=== PATIENT | female | born 1995 | race Two or more races ===

== ENCOUNTER 2017-03-18 20:46 | Emergency (ER) | payer OTHER ==
[~2017-03-18] VITALS: Ht 152.4 cm; Wt 81.6 kg
[2017-03-18] MEDS ORDERED: Tubing IV Cassette IV ONE (21:30)
[2017-03-18] MEDS ORDERED: Morphine Sulfate 4mg/ml Inj IVP ONE ×2 (21:30→23:00)
[2017-03-18 21:45] LABS: BASOPHILS % (AUTO) 0.8 % (0.0-2.0); EOSINOPHILS % (AUTO) 0.3 % (0.0-3.0); HEMATOCRIT 45.9 % (37.0-47.0); HEMOGLOBIN 14.7 G/DL (12.0-16.0); LYMPHOCYTES % (AUTO) 14.5 % (20.0-45.0); MEAN CORPUSCULAR VOLUME 93 FL (80-99); MONOCYTES % (AUTO) 6.4 % (1.0-10.0); PLATELET COUNT 300 K/UL (150-450); RED BLOOD COUNT 4.95 M/UL (4.20-5.40); RED CELL DISTRIBUTION WIDTH 11.8 % (11.6-14.8)
[2017-03-18 21:54] LABS: APPEARANCE,URINE SLIGHTLY CLOUDY; BILIRUBIN, URINE NEGATIVE (NEGATIVE); GLUCOSE, URINE (UA) NEGATIVE (NEGATIVE); KETONES,URINE 3+ (NEGATIVE); LEUKOCYTE ESTERASE ,URINE 2+ (NEGATIVE); NITRITE,URINE NEGATIVE (NEGATIVE); PH,URINE 5 (4.5-8.0); PROTEIN,URINE 1+ (NEGATIVE); UROBILINOGEN,URINE NORMAL MG/DL (0.0-1.0)
[2017-03-18 21:55] LABS: COLOR,URINE YELLOW
[2017-03-18 21:57] LABS: ANION GAP 14 mmol/L (5-15); BLOOD UREA NITROGEN 8 mg/dL (7-18); CALCIUM 8.1 MG/DL (8.5-10.1); CARBON DIOXIDE 21 MMOL/L (21-32); CHLORIDE 105 MMOL/L (98-107); CREATININE 0.7 MG/DL (0.55-1.30); POTASSIUM 3.8 MMOL/L (3.5-5.1); SODIUM 140 MMOL/L (136-145)
[2017-03-18 22:02] LABS: ALANINE AMINOTRANSFERASE 18 U/L (12-78); ALBUMIN 4.1 G/DL (3.4-5.0); ALBUMIN/GLOBULIN RATIO 0.9 (1.0-2.7); ALKALINE PHOSPHATASE 69 U/L (46-116); ASPARTATE AMINO TRANSFERASE 15 U/L (15-37); BILIRUBIN,TOTAL 0.5 MG/DL (0.2-1.0)
[2017-03-18] MEDS ORDERED: cefTRIAXone 1 GM in NS 55 ML IVPB ONE (22:15)
--- NOTE | 2017-03-18 22:33 | Emergency Room Report ---
History of Present Illness General Chief Complaint: Vomiting Source: Patient Present Illness HPI 21-year-old female presents to ED complaining of abdominal pain with nausea and vomiting started 3 days ago. Pain is epigastric, sharp, 8/10, nonradiating. Also states she has streaks of blood in her vomit. States she has history of "colitis" but does not specify further. States she stated medications but does not know the name of them. Denies chest pain or shortness of breath. Denies dysuria or hematuria. Denies diarrhea. No other aggravating relieving factors. Denies any other associated symptoms Allergies: Coded Allergies: No Known Allergies (Unverified , 03/18/17) Patient History Past Medical History: none Past Surgical History: none Pertinent Family History: none Social History: Denies: smoking, alcohol use, drug use Last Menstrual Period: Irregular Now: No Immunizations: UTD Reviewed Nursing Documentation: PMH: Agreed, PSxH: Agreed Nursing Documentation-PMH Past Medical History: No History, Except For Hx Cardiac Problems: No - Colitis Review of Systems All Other Systems: negative except mentioned in HPI Physical Exam Vital Signs Date Time Temp Pulse Resp B/P (MAP) Pulse Ox O2 Delivery O2 Flow Rate FiO2 03/18/17 20:57 99.3 96 15 119/75 97 Room Air Sp02 EP Interpretation: reviewed, normal General Appearance: alert, GCS 15, non-toxic Head: normocephalic, atraumatic Eyes: bilateral eye normal inspection, bilateral eye PERRL ENT: hearing grossly normal, normal pharynx, no angioedema, normal voice Neck: full range of motion, supple/symm/no masses Respiratory: chest non-tender, lungs clear, normal breath sounds, speaking full sentences Cardiovascular #1: regular rate, rhythm, no edema Cardiovascular #2: 2+ carotid (R), 2+ carotid (L), 2+ radial (R), 2+ radial (L) , 2+ dorsalis pedis (R), 2+ dorsalis pedis (L) Gastrointestinal: normal bowel sounds, non tender, soft, non-distended, no guarding, no rebound Rectal: deferred Genitourinary: normal inspection, no CVA tenderness Musculoskeletal: back normal, gait/station normal, normal range of motion, non- tender Neurologic: alert, oriented x3, responsive, motor strength/tone normal, sensory intact, speech normal Psychiatric: judgement/insight normal, memory normal, mood/affect normal, no suicidal/homicidal ideation Reflexes: 3+ bicep (R), 3+ bicep (L), 3+ tricep (R), 3+ tricep (L), 3+ knee (R) , 3+ knee (L) Skin: normal color, no rash, warm/dry, well hydrated Lymphatic: no adenopathy Medical Decision Making Diagnostic Impression: Primary Impression: Gastritis Qualified Codes: K29.01 - Acute gastritis with bleeding Additional Impression: UTI (urinary tract infection) Qualified Codes: N39.0 - Urinary tract infection, site not specified ER Course Hospital Course 21-year-old F presents to ED with abdominal pain, vomiting Differential diagnosis includes-appendicitis, cholecystitis, small bowel obstruction, gastritis, Clinical course Patient placed on stretcher. After initial history and physical I ordered labs , IV fluids, pain medications, zofran, pepcid Labs - noted leukocytosis, electrolytes ok, LFTs normal, UA + bacteria patient continues to have pain, vomiting. CT ordered rocephin IV given CT scan shows no acute pathology. ? ovarian cyst Pelvic US - shows R ovarian cyst, no torsion Upon reassessment, patient feels better. tolerating PO. safe for discharge. discussed findings with patient I feel this is a highly complex case requiring extensive working including EKG/ Rhythm strip, Xray/CT/US, Blood/urine lab work, repeat exams while in ED, and administration of strong opiates/narcotics for pain control, admission to hospital or close patient follow up. Diagnosis - gastritis, UTI Stable and discharged to home with Rx [place], Keflex, Zofran, Zantac. Followup with PMD. Return to ED if symptoms recur or worsen Labs Test 03/18/17 21:25 White Blood Count 16.0 K/UL (4.8-10.8) Red Blood Count 4.95 M/UL (4.20-5.40) Hemoglobin 14.7 G/DL (12.0-16.0) Hematocrit 45.9 % (37.0-47.0) Mean Corpuscular Volume 93 FL (80-99) Mean Corpuscular Hemoglobin 29.6 PG (27.0-31.0) Mean Corpuscular Hemoglobin Concent 32.0 G/DL (32.0-36.0) Red Cell Distribution Width 11.8 % (11.6-14.8) Platelet Count 300 K/UL (150-450) Mean Platelet Volume 7.1 FL (6.5-10.1) Neutrophils (%) (Auto) 78.0 % (45.0-75.0) Lymphocytes (%) (Auto) 14.5 % (20.0-45.0) Monocytes (%) (Auto) 6.4 % (1.0-10.0) Eosinophils (%) (Auto) 0.3 % (0.0-3.0) Basophils (%) (Auto) 0.8 % (0.0-2.0) Urine Color Yellow Urine Appearance Slightly cloudy Urine pH 5 (4.5-8.0) Urine Specific [place] 1.025 (1.005-1.035) Urine Protein 1+ (NEGATIVE) Urine Glucose (UA) Negative (NEGATIVE) Urine Ketones 3+ (NEGATIVE) Urine Occult Blood Negative (NEGATIVE) Urine Nitrite Negative (NEGATIVE) Urine Bilirubin Negative (NEGATIVE) Urine Urobilinogen Normal MG/DL (0.0-1.0) Urine Leukocyte Esterase 2+ (NEGATIVE) Urine RBC 2-4 /HPF (0 - 2) Urine WBC 10-15 /HPF (0 - 2) Urine Squamous Epithelial Cells Many /LPF (NONE/OCC) Urine Bacteria Moderate /HPF (NONE) Urine Mucus Many /LPF (NONE/OCC) Urine HCG, Qualitative Negative Sodium Level 140 MMOL/L (136-145) Potassium Level 3.8 MMOL/L (3.5-5.1) Chloride Level 105 MMOL/L (98-107) Carbon Dioxide Level 21 MMOL/L (21-32) Anion Gap 14 mmol/L (5-15) Blood Urea Nitrogen 8 mg/dL (7-18) Creatinine 0.7 MG/DL (0.55-1.30) Estimat Glomerular Filtration Rate > 60 mL/min (>60) Glucose Level 98 MG/DL (74-106) Calcium Level 8.1 MG/DL (8.5-10.1) Total Bilirubin 0.5 MG/DL (0.2-1.0) Aspartate Amino Transf (AST/SGOT) 15 U/L (15-37) Alanine Aminotransferase (ALT/SGPT) 18 U/L (12-78) Alkaline Phosphatase 69 U/L (46-116) Total Protein 8.6 G/DL (6.4-8.2) Albumin 4.1 G/DL (3.4-5.0) Globulin 4.5 g/dL Albumin/Globulin Ratio 0.9 (1.0-2.7) Lipase 103 U/L (73-393) CT/MRI/US Diagnostic Results CT/MRI/US Diagnostic Results #1: Imaging Test Ordered: CT A/P Impression no acute process. R ovarian cyst CT/MRI/US Diagnostic Results #2: Imaging Test Ordered: Pelvic US Impression R ovarian cyst, no torsion Last Vital Signs Date Time Temp Pulse Resp B/P (MAP) Pulse Ox O2 Delivery O2 Flow Rate FiO2 03/18/17 22:03 99.3 03/18/17 20:57 96 15 119/75 97 Room Air Status: improved Disposition: HOME, SELF-CARE Condition: Stable Scripts Ranitidine Hcl* (ZANTAC*) 150 Mg Tablet 150 MG ORAL TWICE A DAY, #30 TAB Prov: JILL HSARPE M.D. 03/19/17 Ondansetron Odt* (ZOFRAN ODT*) 4 Mg Tab.rapdis 4 MG ORAL Q6H Y for Nausea & Vomiting, #30 TAB 0 Refills Prov: JILL SHARPE M.D. 03/19/17 Hydrocodone Bit/Acetaminophen 5-325* (NORCO 5-325*) 1 Each Tablet 1 TAB ORAL Q6H Y for For Pain, #10 TAB 0 Refills Prov: JILL SHARPE M.D. 03/19/17 Cephalexin* (KEFLEX*) 500 Mg Capsule 500 MG ORAL Q6H, #28 CAP 0 Refills Prov: JILL SHARPE M.D. 03/19/17 Referrals: NOT CHOSEN RUBEN/,REFERRING (PCP) JILL SHARPE M.D. Mar 18, 2017 22:33
[2017-03-18 23:14] VITALS: BP 124/73
[2017-03-19] MEDS ORDERED: Ketorolac 30mg Inj IV ONE (00:15)
[2017-03-19] MEDS ORDERED: ZOFRAN ODT4 MG ORAL (01:20)
[2017-03-19] MEDS ORDERED: NORCO 5-325 TA1 EACH ORAL (01:20)
[2017-03-19] MEDS ORDERED: RANITIDINE HCL150 MG ORAL (01:20)
[2017-03-19] MEDS ORDERED: KEFLEX500 MG ORAL (01:20)
[2017-03-19 01:25] VITALS: BP 123/83
[2017-03-19 01:45] VITALS: BP 123/83
--- NOTE | 2017-03-21 14:06 | Diagnostic Imaging Report ---
Indication: Abdominal pain Technique: CT of the abdomen and pelvis utilizing automated exposure control with intravenous contrast. Venous scanning performed. CT dose: Total DLP 1134 mGycm; CTDI vol 18.8 and 19.5 mGy Comparison: None Findings: The lung bases are clear. There is a small hiatal hernia. No CT evidence gallstones are identified. There is mild fatty infiltration of the liver. Adrenal glands are unremarkable. 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 The small bowel loops are normal in caliber. The appendix is normal. There is no free intraperitoneal air. There is trace free fluid in the pelvis. Bladder is grossly unremarkable. There is an approximately 3.4 cm low-attenuation lesion involving the right ovary with a small area of enhancement along its anterior aspect measuring 6 mm in thickness. Impression: Normal appendix. No mechanical bowel obstruction. Small hiatal hernia. Approximately 3.4 cm low-attenuation lesion involving the right ovary with small area of enhancement along its anterior aspect measuring 6 mm in thickness. Findings could represent a complex ovarian cyst with adjacent ovarian tissue but the possibility of a cystic ovarian mass cannot be completely excluded. Correlation with pelvic ultrasound recommended. Short-term follow-up recommended for further evaluation. The CT scanner at [facility] is accredited by the [employer] and the scans are performed using protocols designed to limit radiation exposure to as low as reasonably achievable to attain images of sufficient resolution adequate for diagnostic evaluation.
--- NOTE | 2017-03-21 14:06 | Diagnostic Imaging Report ---
Indication: Pelvic pain Technique: Transabdominal and endovaginal pelvic ultrasound. Comparison: CT abdomen and pelvis 03/18/2017 Findings: The uterus measures 6.5 x 2.6 cm. The endometrial echo complex measures 1.0 cm. There is a cervical nabothian cyst. Left ovary measures 2.3 x 1.2 cm and is grossly unremarkable with color and Doppler flow. Right ovary measures 4.6 x 3.3 cm with a 3.2 cm complex cystic structure with internal echoes. Impression: Approximately 3.2 cm complex cystic lesion with internal echoes. Findings could represent a hemorrhagic cyst but other cystic abnormalities not completely excluded. Short-term follow-up ultrasound recommended for further evaluation. Cervical nabothian cysts.
== END 2017-03-19 01:45 | disposition home or self-care (01) ==
LOC: EMR 21:18
DX: K29.01 Acute gastritis with bleeding (principal); N39.0 Urinary tract infection, site not specified; D72.829 Elevated white blood cell count, unspecified; N83.201 Unspecified ovarian cyst, right side
CPT/HCPCS: 36415; 74177; 76830; 76856; 80053; 81003; 81025; 83690; 85025; 87086; 96361; 96372; 96374; 96375; 99284; J0696; J1885; J2270; J2405; Q9967; S0028

== ENCOUNTER 2018-01-11 01:44 | Emergency (ER) | payer OTHER ==
[~2018-01-11] VITALS: Ht 152.4 cm; Wt 68.0 kg
[~2018-01-11 01:44] MED LIST: KEFLEX500 MG ORAL; NORCO 5-325 TA1 EACH ORAL; RANITIDINE HCL150 MG ORAL; ZOFRAN ODT4 MG ORAL
[2018-01-11] MEDS ORDERED: NKM (01:45)
[2018-01-11 01:57] VITALS: BP 115/71
[2018-01-11] MEDS ORDERED: Pantoprazole Inj IV ONE (02:00)
[2018-01-11] MEDS ORDERED: Mylanta II UD 30ml ORAL ONE (02:00)
[2018-01-11] MEDS ORDERED: Lidocaine 2% Visc 15ml soln ORAL ONE (02:00)
--- NOTE | 2018-01-11 02:01 | Emergency Room Report ---
History of Present Illness General Chief Complaint: Abdominal Pain Source: Patient Present Illness HPI Is a 22-year-old female with a history of bilateral hernia with reflux. She says she is postop surgery. She presents with chief complaint of epigastric pain with vomiting. Notice some blood in it. She was at a Halloween green party and however with tonight and was drinking. Complaining of epigastric pain. Pain is 8 out of 10. Worse with vomiting. No fever chills but no diarrhea. No hematuria or GI bleeding. She did complaining of vaginal bleeding. She said her period is irregular. Last menstrual period was 5 months ago. She said that she can't be because she is a lesbian. Allergies: Coded Allergies: No Known Allergies (Unverified , 01/11/18) Patient History Past Medical History: see triage record, old chart reviewed Past Surgical History: other Pertinent Family History: none Social History: Reports: alcohol use - Social Last Menstrual Period: 07/2017 Now: No : 0 Para: 0 Immunizations: other Reviewed Nursing Documentation: PMH: Agreed; PSxH: Agreed Nursing Documentation-PMH Past Medical History: No History, Except For Hx Diabetes: Yes - type 2 Hx Gastrointestinal Problems: Yes - ulcers Review of Systems Eye: Denies: eye pain, blurred vision ENT: Denies: ear pain, nose congestion, throat swelling Respiratory: Denies: cough, shortness of breath Cardiovascular: Denies: chest pain, palpitations Gastrointestinal: Reports: abdominal pain, nausea, vomiting, hematemesis; Denies: diarrhea Genitourinary: Reports: vag bleed/dc Musculoskeletal: Denies: back pain, joint pain Skin: Denies: rash Neurological: Denies: headache, numbness Endocrine: Denies: increased thirst, increased urine Hematologic/Lymphatic: Denies: easy bruising All Other Systems: negative except mentioned in HPI Physical Exam Vital Signs Date Time Temp Pulse Resp B/P (MAP) Pulse Ox O2 Delivery O2 Flow Rate FiO2 01/11/18 01:41 97.9 84 18 115/71 94 Room Air vitals normal Sp02 EP Interpretation: reviewed, normal General Appearance: well appearing, no apparent distress, alert Head: normocephalic, atraumatic Eyes: bilateral eye PERRL, bilateral eye EOMI ENT: hearing grossly normal, normal pharynx Neck: full range of motion, supple, no meningismus Respiratory: chest non-tender, lungs clear, normal breath sounds Cardiovascular #1: regular rate, rhythm, no murmur Gastrointestinal: normal bowel sounds, no mass, no organomegaly, no bruit, non- distended, tenderness - Epigastric Musculoskeletal: back normal, gait/station normal, normal range of motion Psychiatric: mood/affect normal Skin: warm/dry Medical Decision Making Diagnostic Impression: Primary Impression: Pancreatitis, alcoholic, acute Qualified Codes: K85.20 - Alcohol induced acute pancreatitis without necrosis or infection Additional Impression: Dysfunctional uterine bleeding ER Course She with epigastric and upper quadrant abdominal pain after drinking. She has evidence of mild pancreatitis. Pain is well-controlled. Vaginal bleeding is probably due to menstrual flow again. No evidence of . No evidence of ectopic. We'll discharge home. Last Vital Signs Date Time Temp Pulse Resp B/P (MAP) Pulse Ox O2 Delivery O2 Flow Rate FiO2 01/11/18 01:41 97.9 84 18 115/71 94 Room Air Status: improved Disposition: HOME, SELF-CARE Condition: Stable Scripts Omeprazole Magnesium (PRILOSEC OTC) 20 Mg Tablet.dr 20 MG ORAL DAILY, #30 TAB Prov: Diego Irvin MD 01/11/18 Hydrocodone/Acetaminophen 5-325* (HYDROCODONE/ACETAMINOPHEN 5-325*) 1 Each Tablet 1 TAB ORAL Q6H PRN for For Pain, #20 TAB 0 Refills Prov: Diego Irvin MD 01/11/18 Additional Instructions: Follow-up with your doctor in 2-3 days. Abstain from any alcohol. Return if symptom worsen. Diego Irvin MD Jan 11, 2018 02:01
[2018-01-11 02:25] LABS: BILIRUBIN, URINE NEGATIVE (NEGATIVE); COLOR,URINE PALE YELLOW; GLUCOSE, URINE (UA) NEGATIVE (NEGATIVE); KETONES,URINE NEGATIVE (NEGATIVE); LEUKOCYTE ESTERASE ,URINE 1+ (NEGATIVE); NITRITE,URINE NEGATIVE (NEGATIVE); PH,URINE 5 (4.5-8.0); PROTEIN,URINE 1+ (NEGATIVE); UROBILINOGEN,URINE NORMAL MG/DL (0.0-1.0)
[2018-01-11 02:29] LABS: APPEARANCE,URINE CLEAR
[2018-01-11 02:32] LABS: ANION GAP 8 mmol/L (5-15); BLOOD UREA NITROGEN 11 mg/dL (7-18); CALCIUM 7.7 MG/DL (8.5-10.1); CARBON DIOXIDE 24 MMOL/L (21-32); CHLORIDE 111 MMOL/L (98-107); CREATININE 0.6 MG/DL (0.55-1.30); POTASSIUM 3.6 MMOL/L (3.5-5.1); SODIUM 142 MMOL/L (136-145)
[2018-01-11 02:36] LABS: BASOPHILS % (AUTO) 0.9 % (0.0-2.0); EOSINOPHILS % (AUTO) 0.7 % (0.0-3.0); HEMATOCRIT 39.3 % (37.0-47.0); HEMOGLOBIN 13.8 G/DL (12.0-16.0); MEAN CORPUSCULAR VOLUME 90 FL (80-99); MONOCYTES % (AUTO) 6.3 % (1.0-10.0); PLATELET COUNT 248 K/UL (150-450); RED BLOOD COUNT 4.39 M/UL (4.20-5.40); WHITE BLOOD COUNT 8.5 K/UL (4.8-10.8)
[2018-01-11 02:38] LABS: ALANINE AMINOTRANSFERASE 17 U/L (12-78); ALBUMIN 3.3 G/DL (3.4-5.0); ALBUMIN/GLOBULIN RATIO 0.9 (1.0-2.7); ALKALINE PHOSPHATASE 62 U/L (46-116); ASPARTATE AMINO TRANSFERASE 10 U/L (15-37); BILIRUBIN,TOTAL 0.2 MG/DL (0.2-1.0)
[2018-01-11] MEDS ORDERED: Morphine Sulfate 4mg/ml Inj (IV/IM USE ONLY) IVP ONE (02:45)
[2018-01-11] MEDS ORDERED: HYDROmorphone 1mg/ml Carpuject IVP ONE (03:15)
[2018-01-11] MEDS ORDERED: HYDROCODON-ACE1 EA15 ORAL (03:18)
[2018-01-11] MEDS ORDERED: PRILOSEC OTC20 MG ORAL (03:18)
[2018-01-11 03:37] VITALS: BP 115/71
== END 2018-01-11 03:30 | disposition home or self-care (01) ==
LOC: EDBD 01:44 → MERGE 02:00 → EMR 02:00
DX: K85.20 Alcohol induced acute pancreatitis without necrosis or infection (principal); N93.8 Other specified abnormal uterine and vaginal bleeding; E11.9 Type 2 diabetes mellitus without complications
CPT/HCPCS: 36415; 80053; 81003; 81025; 83690; 85025; 96361; 96374; 96375; 99284; C9113; J1170; J2270; J2405

== ENCOUNTER 2019-09-04 15:31 | Emergency (ER) | payer MEDICAID, OTHER ==
[~2019-09-04] VITALS: Ht 154.9 cm; Wt 81.6 kg
[~2019-09-04 15:31] MED LIST changes: +HYDROCODON-ACE1 EA15 ORAL; +NKM; +PRILOSEC OTC20 MG ORAL
[2019-09-04 15:50] VITALS: BP 112/81
--- NOTE | 2019-09-04 16:16 | Emergency Room Report ---
History of Present Illness General Chief Complaint: Flu Like Symptoms Source: Patient Present Illness HPI 23-year-old female presents to the emergency department complaining of fevers and body aches x2 days. Patient reports one episode of nausea and vomiting this a.m. Patient reports she took Motrin last night which did help reduce her fever. Patient reports she woke up in a cold sweat. Patient denies recent travel other than staying at a resort that was very hot this past weekend and states that she was going in and out of hot weather and the cold AC. She denies sore throat, neck pain/stiffness, photophobia, headache, abdominal pain or tenderness. Patient denies constipation, diarrhea, urinary frequency or urgency. Patient denies hematuria or dysuria. Patient states she does not think that she could be . Denies contact with persons who have tested positive for or are under investigation/quarantine for COVID-19. Denies cough, SOB, wheezing or CP. Pt. denies hx of immune compromise or significant past medical hx. Allergies: Coded Allergies: No Known Allergies (Unverified , 03/18/17) COVID-19 Screening Contact w/high risk pt: No Recent Travel to affected area: No Experienced COVID-19 symptoms?: Yes COVID-19 symptoms experienced: Flu-Like Symptoms COVID-19 Testing performed RADAR REPAIRER: No Patient History Past Medical History: see triage record Past Surgical History: none Pertinent Family History: none Last Menstrual Period: 3 weeks ago Now: No Reviewed Nursing Documentation: PMH: Agreed; PSxH: Agreed Nursing Documentation-PMH Past Medical History: No History, Except For Hx Cardiac Problems: No - Colitis Review of Systems All Other Systems: negative except mentioned in HPI Physical Exam Vital Signs Date Time Temp Pulse Resp B/P (MAP) Pulse Ox O2 Delivery O2 Flow Rate FiO2 09/04/19 15:39 98.4 107 18 107/87 (94) 97 Room Air 09/04/19 15:50 99 Sp02 EP Interpretation: reviewed, normal General Appearance: no apparent distress, alert, GCS 15, non-toxic Head: normocephalic, atraumatic Eyes: bilateral eye normal inspection, bilateral eye PERRL ENT: hearing grossly normal, normal voice, TMs + canals normal, uvula midline Neck: full range of motion, no meningismus Respiratory: chest non-tender, lungs clear, normal breath sounds, no rhonchi, no respiratory distress, no accessory muscle use, no wheezing, speaking full sentences Cardiovascular #1: regular rate, rhythm Gastrointestinal: normal bowel sounds, non tender, soft Rectal: deferred Genitourinary: normal inspection, no CVA tenderness Musculoskeletal: normal range of motion, gait/station normal, non-tender Neurologic: alert, motor strength/tone normal, oriented x3, sensory intact, responsive, speech normal Psychiatric: judgement/insight normal Skin: normal color Lymphatic: no adenopathy Medical Decision Making PA Attestation Dr. Lombardo is my supervising Physician whom patient management has been discussed with. Diagnostic Impression: Primary Impression: UTI (urinary tract infection) Qualified Codes: N30.01 - Acute cystitis with hematuria ER Course 23-year-old female presents to the emergency department complaining of fevers and body aches x2 days. Patient reports one episode of nausea and vomiting this a.m. Patient reports she took Motrin last night which did help reduce her fever. Patient reports she woke up in a cold sweat. Patient denies recent travel other than staying at a resort that was very hot this past weekend and states that she was going in and out of hot weather and the cold AC. She denies sore throat, neck pain/stiffness, photophobia, headache, abdominal pain or tenderness. Patient denies constipation, diarrhea, urinary frequency or urgency. Patient denies hematuria or dysuria. Patient states she does not think that she could be . Denies contact with persons who have tested positive for or are under investigation/quarantine for COVID-19. Denies cough, SOB, wheezing or CP. Pt. denies hx of immune compromise or significant past medical hx. Ddx considered but are not limited to URI, pneumonia, PE, strep pharyngitis, meningitis, influenza, UTI, , gastritis, OM/OE, COVID-19 just to name a few. Vital signs: Pt. is afebrile, the remaining VS are WNL H&PE are most consistent with Viral Syndrome will treat clinically - no meningeal signs, Lungs are clear and oropharynx is not involved, no evidence of bacterial infection at this time. NO evidence of hypoxia or respiratory distress. ORDERS: -UA: Indicative of UTI with presence of moderate bacteria and increased inflammatory markers -Urine Hcg: Negative ED INTERVENTIONS: -Zofran PO This patient was evaluated in the context of the global COVID-19 pandemic, which necessitated consideration that the patient might be at risk for infection with the SARS-COV-2 virus that causes COVID-19. Institutional protocols and algorithms that pertaining to the evaluation of patients at risk for COVID-19 are in a state of rapid change based on information released by multiple regulatory bodies including the CDC and federal and state organizations. These policies and algorithms were followed during the patient' s care in the emergency department d/w pt. that she shall isolate at home as she is experiencing symptoms that are in line with viral type symptoms/syndrome. Discussed with patient that she will be placed on antibiotics given the results of her urinalysis testing. Discussed with patient that regardless whether this is viral or bacterial in nature she is not currently demonstrating any signs of distress or acute symptoms that would indicate emergency treatment or admission to the hospital. Discussed with patient that she should still attempt to not pass on any illness to other persons until she is symptom free. DISCHARGE: At this time pt. is stable for d/c to home. Will provide printed patient care instructions, and any necessary prescriptions. Care plan and follow up instructions have been discussed with the patient prior to discharge. Labs Test 09/04/19 16:00 Urine Color Pale yellow Urine Appearance Slightly cloudy Urine pH 8 (4.5-8.0) Urine Specific [place] 1.015 (1.005-1.035) Urine Protein 1+ (NEGATIVE) Urine Glucose (UA) Negative (NEGATIVE) Urine Ketones 1+ (NEGATIVE) Urine Blood Negative (NEGATIVE) Urine Nitrite Negative (NEGATIVE) Urine Bilirubin Negative (NEGATIVE) Urine Urobilinogen Normal MG/DL (0.0-1.0) Urine Leukocyte Esterase 2+ (NEGATIVE) Urine RBC 0 /HPF (0 - 2) Urine WBC 15-20 /HPF (0 - 2) Urine Squamous Epithelial Cells Many /LPF (NONE/OCC) Urine Bacteria Moderate /HPF (NONE) Urine HCG, Qualitative Negative (NEGATIVE) Last Vital Signs Date Time Temp Pulse Resp B/P (MAP) Pulse Ox O2 Delivery O2 Flow Rate FiO2 09/04/19 15:50 98.4 101 16 112/81 99 Room Air 09/04/19 15:50 99 Disposition: HOME, SELF-CARE Condition: Stable Scripts Acetaminophen* (TYLENOL EXTRA STRENGTH*) 500 Mg Tablet 500 MG ORAL Q6H PRN for Mild Pain/Temp > 100.5, #20 TAB 0 Refills Prov: Lili Bradley 09/04/19 Ondansetron Odt* (ZOFRAN ODT*) 4 Mg Tab.rapdis 4 MG BC EVERY 8 HOURS PRN for Nausea & Vomiting, #10 TAB 0 Refills Prov: Lili Bradley 09/04/19 Cephalexin* (KEFLEX*) 500 Mg Capsule 500 MG ORAL EVERY 12 HOURS for 7 Days, #14 CAP 0 Refills Prov: Lili Bradley 09/04/19 Referrals: I[facility] Patient Instructions: Fever, Adult, [id number], Urinary Tract Infection Additional Instructions: Take medications as directed. Follow up with a Primary Care Provider in 3-5 days, even if your symptoms have resolved. --Please review list of primary care clinics, if you do not already have a primary care provider Return sooner to ED if new symptoms occur, or current symptoms become worse. - Please note that this Emergency Department Report was dictated using [employer] marketing analyst technology software, occasionally this can lead to erroneous entry secondary to interpretation by the dictation equipment. Lili Bradley Sep 04, 2019 16:16
[2019-09-04 16:23] LABS: APPEARANCE,URINE SLIGHTLY CLOUDY; BILIRUBIN, URINE NEGATIVE (NEGATIVE); COLOR,URINE PALE YELLOW; GLUCOSE, URINE (UA) NEGATIVE (NEGATIVE); KETONES,URINE 1+ (NEGATIVE); LEUKOCYTE ESTERASE ,URINE 2+ (NEGATIVE); NITRITE,URINE NEGATIVE (NEGATIVE); PH,URINE 8 (4.5-8.0); PROTEIN,URINE 1+ (NEGATIVE); UROBILINOGEN,URINE NORMAL MG/DL (0.0-1.0)
[2019-09-04] MEDS ORDERED: CEPHALEXIN500 MG ORAL (17:14)
[2019-09-04] MEDS ORDERED: ONDANSETRON ODT4 MG BC (17:14)
[2019-09-04] MEDS ORDERED: TYLENOL EXTRA500 MG ORAL (17:19)
[2019-09-04 17:39] VITALS: BP 124/76
== END 2019-09-04 17:38 | disposition home or self-care (01) ==
LOC: EMR 16:10
DX: N39.0 Urinary tract infection, site not specified (principal); N30.01 Acute cystitis with hematuria
CPT/HCPCS: 81003; 81025; 87086; Z7502; 99283

== ENCOUNTER 2019-12-20 07:19 | Emergency (ER) | payer MEDICAID, OTHER ==
[~2019-12-20] VITALS: Ht 152.4 cm; Wt 86.2 kg
[~2019-12-20 07:19] MED LIST changes: +CEPHALEXIN500 MG ORAL; +ONDANSETRON ODT4 MG BC; +TYLENOL EXTRA500 MG ORAL
[2019-12-20 07:35] VITALS: BP 140/68
--- NOTE | 2019-12-20 07:35 | NUR ---
ED Nurse Note: Patient from home and walked in due to medial upper abd pain described as sharp and stabbing x 2 days. Pt also experiences blood tinged vomit and stool. No active vomiting upon ED arrival. AAO x,4 ambulatroy with no respiratory distress.
--- NOTE | 2019-12-20 07:37 | Emergency Room Report ---
History of Present Illness General Chief Complaint: Vomiting Source: Patient Present Illness HPI 24-year-old female no past medical history reports 2 days of epigastric sharp pain with blood-tinged vomitus, patient drank 3 glasses of wine yesterday for her bachelorette, she vomited 3 times no aggravating relieving factors severity is moderate, constant patient denies any chest pain shortness of breath, no fev ers no chills patient presents for evaluation and treatment Allergies: Coded Allergies: No Known Allergies (Unverified , 03/18/17) COVID-19 Screening Contact w/high risk pt: No Recent Travel to affected area: No Experienced COVID-19 symptoms?: Yes COVID-19 symptoms experienced: Flu-Like Symptoms COVID-19 Testing performed 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 Patient History Past Medical History: see triage record Last Menstrual Period: 4 days ago Reviewed Nursing Documentation: PMH: Agreed; PSxH: Agreed Nursing Documentation-PMH Hx Cardiac Problems: No - Colitis Hx Diabetes: Yes Review of Systems All Other Systems: negative except mentioned in HPI Physical Exam Vital Signs Date Time Temp Pulse Resp B/P (MAP) Pulse Ox O2 Delivery O2 Flow Rate FiO2 12/20/19 07:25 98.2 109 19 125/83 (97) 95 Room Air Sp02 EP Interpretation: reviewed, normal General Appearance: well appearing, no apparent distress, alert Head: normocephalic, atraumatic Eyes: bilateral eye PERRL, bilateral eye EOMI ENT: uvula midline, moist mucus membranes Neck: supple, thyroid normal, supple/symm/no masses Respiratory: lungs clear, no respiratory distress, no retraction, no accessory muscle use Cardiovascular #1: normal peripheral pulses, no edema, no gallop, no murmur, tachycardia Gastrointestinal: soft, no guarding, no rebound, tenderness - Epigastrically Musculoskeletal: normal inspection Neurologic: alert, oriented x3 Psychiatric: mood/affect normal Skin: no rash, warm/dry Medical Decision Making Diagnostic Impression: Primary Impression: Gastritis Qualified Codes: K29.21 - Alcoholic gastritis with bleeding ER Course 24-year-old female presents with epigastric pain differential diagnosis includes alcoholic gastritis, pancreatitis Patient found to have alcohol in her system may be alcohol induced gastritis additionally H&H is stable doubt GI bleed Patient given pantoprazole, fluids with resolution and tachycardia patient comfortable, CT scan negative no evidence of perforation Disposition home with return precautions counseling given follow-up with PCP Laboratory Tests Test 12/20/19 07:40 12/20/19 09:04 White Blood Count 6.1 K/UL (4.8-10.8) Red Blood Count 4.67 M/UL (4.20-5.40) Hemoglobin 13.9 G/DL (12.0-16.0) Hematocrit 40.8 % (37.0-47.0) Mean Corpuscular Volume 87 FL (80-99) Mean Corpuscular Hemoglobin 29.8 PG (27.0-31.0) Mean Corpuscular Hemoglobin Concent 34.1 G/DL (32.0-36.0) Red Cell Distribution Width 11.6 % (11.6-14.8) Platelet Count 309 K/UL (150-450) Mean Platelet Volume 7.1 FL (6.5-10.1) Neutrophils (%) (Auto) 71.4 % (45.0-75.0) Lymphocytes (%) (Auto) 19.8 % (20.0-45.0) L Monocytes (%) (Auto) 7.0 % (1.0-10.0) Eosinophils (%) (Auto) 0.1 % (0.0-3.0) Basophils (%) (Auto) 1.7 % (0.0-2.0) Prothrombin Time 10.9 SEC (9.30-11.50) Prothrombin Time INR 1.0 (0.9-1.1) Activated Partial Thromboplast Time 25 SEC (23-33) Sodium Level 137 MMOL/L (136-145) Potassium Level 3.7 MMOL/L (3.5-5.1) Chloride Level 104 MMOL/L (98-107) Carbon Dioxide Level 20 MMOL/L (21-32) L Anion Gap 13 mmol/L (5-15) Blood Urea Nitrogen 6 mg/dL (7-18) L Creatinine 0.6 MG/DL (0.55-1.30) Estimated Glomerular Filtration Rate > 60 mL/min (>60) Glucose Level 162 MG/DL (74-106) H Calcium Level 8.7 MG/DL (8.5-10.1) Total Bilirubin 0.2 MG/DL (0.2-1.0) Aspartate Amino Transferase (AST) 18 U/L (15-37) Alanine Aminotransferase (ALT) 20 U/L (12-78) Alkaline Phosphatase 64 U/L (46-116) Total Protein 7.4 G/DL (6.4-8.2) Albumin 3.8 G/DL (3.4-5.0) Globulin 3.6 g/dL Albumin/Globulin Ratio 1.1 (1.0-2.7) Lipase 165 U/L (73-393) Human Chorionic Gonadotropin, Quant < 1 mIU/mL (1-6) L Serum Alcohol 84 mg/dL Urine Color Pale yellow Urine Appearance Clear Urine pH 5 (4.5-8.0) Urine Specific [place] 1.010 (1.005-1.035) Urine Protein Negative (NEGATIVE) Urine Glucose (UA) Negative (NEGATIVE) Urine Ketones Negative (NEGATIVE) Urine Blood Negative (NEGATIVE) Urine Nitrite Negative (NEGATIVE) Urine Bilirubin Negative (NEGATIVE) Urine Urobilinogen Normal MG/DL (0.0-1.0) Urine Leukocyte Esterase 1+ (NEGATIVE) H Urine RBC 0-2 /HPF (0 - 2) Urine WBC 2-4 /HPF (0 - 2) Urine Squamous Epithelial Cells Occasional /LPF Urine Bacteria None /HPF (NONE) Urine HCG, Qualitative Negative (NEGATIVE) EKG Diagnostic Results Troponin ordered: No EKG Time: 07:44 EP Interpretation: NSR, rate 96, QTc 437, no acute ST elevations, normal axis Rhythm Strip Diag. Results Rhythm Strip Time: 07:50 EP Interpretation: yes Rate: 98 Rhythm: NSR, no PVC's, no ectopy Chest X-Ray Diagnostic Results Chest X-Ray Diagnostic Results : Chest X-Ray Ordered: Yes # of Views/Limited/Complete: 1 View Indication: Other - Epigastric pain EP Interpretation: Yes Interpretation: no consolidation, no effusion, no pneumothorax, no acute cardiopulmonary disease Impression: No acute disease Electronically Signed by: Angelo Zacarias MD CT/MRI/US Diagnostic Results CT/MRI/US Diagnostic Results : Impression Procedure: CT Abdomen Pelvis w/Contrast Clinical Indication: Abdominal pain, epigastric sharp pain with blood-tinged vomiting Technique: No oral contrast utilized, per emergency room physician request IV administration nonionic contrast. Venous phase spiral acquisition obtained through the abdomen and pelvis. Multiplanar reconstructions were generated. Total dose length product 905 mGycm. CTDIvol(s) 17 mGy. Dose reduction achieved using automated exposure control Comparison: none Findings: Lack of enteric contrast limits assessment of the GI tract. There is a small to moderate-sized sliding-type hiatal hernia demonstrated. The stomach and duodenum are otherwise unremarkable. The appendix is normal. No small bowel distention. No free or loculated intraperitoneal gas or fluid is evident. The liver, gallbladder, bile ducts pancreas, spleen, adrenals, kidneys are unremarkable. No renal or ureter calculi, hydronephrosis nor hydroureter. No pelvic mass or adenopathy. Uterus and ovaries are unremarkable. The included lung bases are clear. The bones are unremarkable. Previously demonstrated right ovarian cyst has resolved. Impression: Limited assessment of the GI tract, due to lack of enteric contrast administration Small to moderate hiatal hernia The CT scanner at [facility] is accredited by the [employer] and the scans are performed using protocols designed to limit radiation exposure to as low as reasonably achievable to attain images of sufficient resolution adequate for diagnostic evaluation. Dictated By: Geo Alvarez MD Electronically Signed By:Geo Alvarez MD Signed Date/Time12/20/19 0935 CC: Angelo Zacarias [id number] 0 Last Vital Signs Date Time Temp Pulse Resp B/P (MAP) Pulse Ox O2 Delivery O2 Flow Rate FiO2 12/20/19 07:25 98.2 109 19 125/83 (97) 95 Room Air Disposition: HOME, SELF-CARE Condition: Stable Scripts Famotidine* (Pepcid 20mg tablet*) 20 Mg Tablet 20 MG ORAL TWICE A DAY for Gerd, #60 TAB 0 Refills Prov: Angelo Zacarias MD 12/20/19 Referrals: NOT CHOSEN IPA/,REFERRING (PCP) [facility] Patient Instructions: Gastritis, Adult, [id number] Additional Instructions: The patient was provided with discharge instructions, notified to follow-up with a primary care doctor and or specialist in the next 24-48 hours, and to return to the ED if they have worsening of their symptoms. Please note that this report is being documented using DRAGON technology. This can lead to erroneous entry secondary to incorrect interpretation by the dictating instrument. Angelo Zacarias MD Dec 20, 2019 07:37
[2019-12-20] MEDS ORDERED: Morphine Sulfate 4mg/ml Inj (IV USE ONLY) IVP ONE (07:45)
[2019-12-20] MEDS ORDERED: Omnipaque-300 100ml vial INJ PRN (07:45)
[2019-12-20] MEDS ORDERED: Pantoprazole Inj IVP ONE (07:45)
--- NOTE | 2019-12-20 07:45 | NUR ---
ED Nurse Note: Collected blood speicmen then sent.
[2019-12-20 08:10] LABS: BASOPHILS % (AUTO) 1.7 % (0.0-2.0); EOSINOPHILS % (AUTO) 0.1 % (0.0-3.0); HEMATOCRIT 40.8 % (37.0-47.0); HEMOGLOBIN 13.9 G/DL (12.0-16.0); LYMPHOCYTES % (AUTO) 19.8 % (20.0-45.0); MEAN CORPUSCULAR VOLUME 87 FL (80-99); NEUTROPHILS % (AUTO) 71.4 % (45.0-75.0); PLATELET COUNT 309 K/UL (150-450); RED BLOOD COUNT 4.67 M/UL (4.20-5.40); RED CELL DISTRIBUTION WIDTH 11.6 % (11.6-14.8); WHITE BLOOD COUNT 6.1 K/UL (4.8-10.8)
[2019-12-20 08:18] LABS: ANION GAP 13 mmol/L (5-15); BLOOD UREA NITROGEN 6 mg/dL (7-18); CALCIUM 8.7 MG/DL (8.5-10.1); CARBON DIOXIDE 20 MMOL/L (21-32); CHLORIDE 104 MMOL/L (98-107); CREATININE 0.6 MG/DL (0.55-1.30); POTASSIUM 3.7 MMOL/L (3.5-5.1); SODIUM 137 MMOL/L (136-145)
[2019-12-20 08:21] LABS: ALANINE AMINOTRANSFERASE 20 U/L (12-78); ALBUMIN 3.8 G/DL (3.4-5.0); ALBUMIN/GLOBULIN RATIO 1.1 (1.0-2.7); ALKALINE PHOSPHATASE 64 U/L (46-116); ASPARTATE AMINO TRANSFERASE 18 U/L (15-37); BILIRUBIN,TOTAL 0.2 MG/DL (0.2-1.0)
[2019-12-20 09:22] VITALS: BP 138/74
[2019-12-20 09:28] LABS: APPEARANCE,URINE CLEAR; BILIRUBIN, URINE NEGATIVE (NEGATIVE); COLOR,URINE PALE YELLOW; GLUCOSE, URINE (UA) NEGATIVE (NEGATIVE); KETONES,URINE NEGATIVE (NEGATIVE); LEUKOCYTE ESTERASE ,URINE 1+ (NEGATIVE); NITRITE,URINE NEGATIVE (NEGATIVE); PH,URINE 5 (4.5-8.0); PROTEIN,URINE NEGATIVE (NEGATIVE); UROBILINOGEN,URINE NORMAL MG/DL (0.0-1.0)
--- NOTE | 2019-12-20 09:40 | Diagnostic Imaging Report ---
Clinical Indication: Abdominal pain, epigastric sharp pain with blood-tinged vomiting Technique: No oral contrast utilized, per emergency room physician request IV administration nonionic contrast. Venous phase spiral acquisition obtained through the abdomen and pelvis. Multiplanar reconstructions were generated. Total dose length product 905 mGycm. CTDIvol(s) 17 mGy. Dose reduction achieved using automated exposure control Comparison: none Findings: Lack of enteric contrast limits assessment of the GI tract. There is a small to moderate-sized sliding-type hiatal hernia demonstrated. The stomach and duodenum are otherwise unremarkable. The appendix is normal. No small bowel distention. No free or loculated intraperitoneal gas or fluid is evident. The liver, gallbladder, bile ducts pancreas, spleen, adrenals, kidneys are unremarkable. No renal or ureter calculi, hydronephrosis nor hydroureter. No pelvic mass or adenopathy. Uterus and ovaries are unremarkable. The included lung bases are clear. The bones are unremarkable. Previously demonstrated right ovarian cyst has resolved. Impression: Limited assessment of the GI tract, due to lack of enteric contrast administration Small to moderate hiatal hernia The CT scanner at [facility] is accredited by the [employer] and the scans are performed using protocols designed to limit radiation exposure to as low as reasonably achievable to attain images of sufficient resolution adequate for diagnostic evaluation.
[2019-12-20] MEDS ORDERED: FAMOTIDINE20 MG ORAL (09:52)
[2019-12-20 10:20] VITALS: BP 118/70
--- NOTE | 2019-12-20 10:20 | NUR ---
ER DISCHARGE NOTE: Patient is cleared to be discharged per ERMD, pt is aox4, on room air, with stable vital signs. pt was given dc and prescription instructions, pt was able to verbalize understanding, pt id band and iv site removed without complications. pt is able to ambulate with steady gait. pt took all belongings.
--- NOTE | 2019-12-20 15:20 | Diagnostic Imaging Report ---
Indication: Chest pain Technique: One view of the chest Comparison: none Findings: Lungs and pleural spaces are clear. Heart size is normal. Impression: No acute process
--- NOTE | 2019-12-20 16:06 | Cardiology Report ---
APPROVED REPORT EKG Measurement Heart [id number] <Conclusion> Normal sinus rhythm Moderate voltage criteria for LVH, may be normal variant Borderline ECG
== END 2019-12-20 10:20 | disposition home or self-care (01) ==
LOC: EMR 07:28
DX: K29.21 Alcoholic gastritis with bleeding (principal); E11.9 Type 2 diabetes mellitus without complications; R00.0 Tachycardia, unspecified; K44.9 Diaphragmatic hernia without obstruction or gangrene
CPT/HCPCS: 36415; 71045; 74177; 80053; 81003; 81025; 83690; 84702; 85025; 85610; 85730; 86850; 86900; 86901; 93005; 96361; 96374; 96375; G0480; J2270; J2405; J7030; Q9965; S0164; Z7502; 99284

== ENCOUNTER 2020-05-13 07:31 | Emergency (ER) | payer OTHER ==
[~2020-05-13] VITALS: Ht 152.4 cm; Wt 81.6 kg
[~2020-05-13 07:31] MED LIST changes: +FAMOTIDINE20 MG ORAL
[2020-05-13] MEDS ORDERED: Morphine Sulfate 2mg/ml Inj(IV/IM USE ONLY) IVP ONE (08:00)
[2020-05-13] MEDS ORDERED: Metoclopramide 10mg/2ml Inj IVP ONE (08:00)
[2020-05-13 08:10] VITALS: BP 112/69
[2020-05-13 08:14] LABS: APPEARANCE,URINE SLIGHTLY CLOUDY; BILIRUBIN, URINE NEGATIVE (NEGATIVE); COLOR,URINE PALE YELLOW; GLUCOSE, URINE (UA) NEGATIVE (NEGATIVE); KETONES,URINE 1+ (NEGATIVE); LEUKOCYTE ESTERASE ,URINE 1+ (NEGATIVE); NITRITE,URINE NEGATIVE (NEGATIVE); PH,URINE 6 (4.5-8.0); PROTEIN,URINE NEGATIVE (NEGATIVE); UROBILINOGEN,URINE NORMAL MG/DL (0.0-1.0)
[2020-05-13 08:15] LABS: BASOPHILS % (AUTO) 0.9 % (0.0-2.0); EOSINOPHILS % (AUTO) 0.1 % (0.0-3.0); HEMATOCRIT 39.2 % (37.0-47.0); HEMOGLOBIN 12.6 G/DL (12.0-16.0); LYMPHOCYTES % (AUTO) 29.6 % (20.0-45.0); MEAN CORPUSCULAR VOLUME 89 FL (80-99); MONOCYTES % (AUTO) 7.3 % (1.0-10.0); NEUTROPHILS % (AUTO) 62.1 % (45.0-75.0); PLATELET COUNT 276 K/UL (150-450); RED BLOOD COUNT 4.39 M/UL (4.20-5.40); RED CELL DISTRIBUTION WIDTH 13.4 % (11.6-14.8); WHITE BLOOD COUNT 6.4 K/UL (4.8-10.8)
[2020-05-13 08:23] LABS: ANION GAP 10 mmol/L (5-15); BLOOD UREA NITROGEN 6 mg/dL (7-18); CALCIUM 8.9 MG/DL (8.5-10.1); CARBON DIOXIDE 23 MMOL/L (21-32); CHLORIDE 106 MMOL/L (98-107); CREATININE 0.7 MG/DL (0.55-1.30); POTASSIUM 3.9 MMOL/L (3.5-5.1); SODIUM 139 MMOL/L (136-145)
[2020-05-13 08:26] LABS: ALANINE AMINOTRANSFERASE 16 U/L (12-78); ALBUMIN 4.3 G/DL (3.4-5.0); ALBUMIN/GLOBULIN RATIO 1.3 (1.0-2.7); ALKALINE PHOSPHATASE 73 U/L (46-116); ASPARTATE AMINO TRANSFERASE 14 U/L (15-37); BILIRUBIN,TOTAL 0.2 MG/DL (0.2-1.0)
[2020-05-13] MEDS ORDERED: cefTRIAXone 1 GM in NS 55 ML IVPB ONE (08:30)
[2020-05-13] MEDS ORDERED: Morphine Sulfate 4mg/ml Inj (IV USE ONLY) IVP ONE (08:30)
--- NOTE | 2020-05-13 08:30 | Emergency Room Report ---
History of Present Illness General Chief Complaint: Gastrointestinal Bleed Source: Patient Present Illness HPI Patient presents with epigastric pain radiating down around the left-hand side of her abdomen. She been vomiting. She states that she has been vomiting some dark blood. She denies any diarrhea or melena. The pain is severe at this time. She says there was a lot of liquid that she vomited and it was or coffee grounds. She is not sure of the quantity. She had this problem 2 months ago, although she says the pain was less, and had a work-up in [place]. She said they could not find anything was a problem. Last month she was hospitalized for 5 days. At that time she had pneumonia. They thought it was Covid but she tested negative. In addition she says that she might of had blood clots in her legs. She is not taking a blood thinner at this time. She denies upper respiratory symptoms at this point. Last menstruation was at the end of last month and normal for her. She does not believe she is . She does complain of dysuria. The patient has been seen here in the past with alcoholic pancreatitis and gastritis. 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 No fevers, chills, sore throat, chest pain, palpitations, diarrhea, shortness of breath, joint pain, rashes, visual changes, dizziness, headache. 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 COVID-19 Screening: Negative COVID-19 COVID-19 Testing Source: unk Patient History Past Medical History: see triage record Social History: Reports: alcohol use; Denies: smoking Social History Narrative lives by herself, works in a restaurant Last Menstrual Period: last month Now: No Reviewed Nursing Documentation: PMH: Agreed; PSxH: Agreed Nursing Documentation-PMH Past Medical History: No History, Except For Hx Cardiac Problems: No - Colitis, hernia Hx Diabetes: Yes Review of Systems All Other Systems: negative except mentioned in HPI Physical Exam Vital Signs Date Time Temp Pulse Resp B/P (MAP) Pulse Ox O2 Delivery O2 Flow Rate FiO2 3/3/21 07:38 98.1 106 20 103/73 (83) 97 Room Air Sp02 EP Interpretation: reviewed, normal General Appearance: well appearing, no apparent distress, GCS 15, non-toxic Head: normocephalic Eyes: bilateral eye normal inspection, bilateral eye PERRL, bilateral eye EOMI ENT: moist mucus membranes Neck: supple Respiratory: lungs clear, normal breath sounds Cardiovascular #1: regular rate, rhythm Cardiovascular #2: 2+ radial (R) Gastrointestinal: normal inspection, normal bowel sounds, no mass, non- distended, no rebound, guarding - Minimal left upper quadrant, tenderness, overw eight Musculoskeletal: back normal, normal range of motion, gait/station normal Neurologic: alert, oriented x3, grossly normal Psychiatric: anxious Skin: no rash, warm/dry, other - Tattoos Medical Decision Making Diagnostic Impression: Primary Impression: Abdominal pain Qualified Codes: R10.13 - Epigastric pain Additional Impressions: UTI (urinary tract infection) Qualified Codes: N30.00 - Acute cystitis without hematuria Gastritis Qualified Codes: K29.01 - Acute gastritis with bleeding ER Course Patient presents with epigastric pain and vomiting blood. Differential includes Tiana-Graf tear, gastritis with hemorrhage, peptic ulcer disease, varices, pancreatitis amongst others. Patient evaluated with labs. Patient had recent evaluation and alleges a CT scan was done that was negative. In light of this fact and her exam imaging studies not indicated at this point. Patient is treated with Reglan, Pepcid and morphine. Consideration of CT of the abdomen if white count is elevated. Labs remarkable for normal white count and no anemia. CMP and lipase normal. Patient has evidence of UTI. Rocephin ordered. Patient still had significant pain after the initial dosing. Morphine was repeated in higher dose. Patient remarkably improved although still has pain. No guarding or rebound on repeat exam. Discussed findings with patient. Discussed most likely diagnosis. Suggested abstention from alcohol. She argued that she did not feel that alcohol was related to the problem. I suggested that she might follow-up with alcoholics anonymous. She states she does not have a sponsor. Discussed outpatient observation and treatment. Discussed the need for follow- up with reevaluation. Patient stable for outpatient observation and treatment. Laboratory Tests Test 05/13/20 08:00 White Blood Count 6.4 K/UL (4.8-10.8) Red Blood Count 4.39 M/UL (4.20-5.40) Hemoglobin 12.6 G/DL (12.0-16.0) Hematocrit 39.2 % (37.0-47.0) Mean Corpuscular Volume 89 FL (80-99) Mean Corpuscular Hemoglobin 28.7 PG (27.0-31.0) Mean Corpuscular Hemoglobin Concent 32.1 G/DL (32.0-36.0) Red Cell Distribution Width 13.4 % (11.6-14.8) Platelet Count 276 K/UL (150-450) Mean Platelet Volume 7.7 FL (6.5-10.1) Neutrophils (%) (Auto) 62.1 % (45.0-75.0) Lymphocytes (%) (Auto) 29.6 % (20.0-45.0) Monocytes (%) (Auto) 7.3 % (1.0-10.0) Eosinophils (%) (Auto) 0.1 % (0.0-3.0) Basophils (%) (Auto) 0.9 % (0.0-2.0) Prothrombin Time 11.2 SEC (9.30-11.50) Prothrombin Time INR 1.0 (0.9-1.1) Activated Partial Thromboplast Time 23 SEC (23-33) Urine Color Pale yellow Urine Appearance Slightly cloudy Urine pH 6 (4.5-8.0) Urine Specific [place] 1.015 (1.005-1.035) Urine Protein Negative (NEGATIVE) Urine Glucose (UA) Negative (NEGATIVE) Urine Ketones 1+ (NEGATIVE) H Urine Blood 1+ (NEGATIVE) H Urine Nitrite Negative (NEGATIVE) Urine Bilirubin Negative (NEGATIVE) Urine Urobilinogen Normal MG/DL (0.0-1.0) Urine Leukocyte Esterase 1+ (NEGATIVE) H Urine RBC 5-10 /HPF (0 - 2) H Urine WBC 10-15 /HPF (0 - 2) H Urine Squamous Epithelial Cells Moderate /LPF (NONE/OCC) H Urine Bacteria Moderate /HPF (NONE) H Urine HCG, Qualitative Negative (NEGATIVE) Sodium Level 139 MMOL/L (136-145) Potassium Level 3.9 MMOL/L (3.5-5.1) Chloride Level 106 MMOL/L (98-107) Carbon Dioxide Level 23 MMOL/L (21-32) Anion Gap 10 mmol/L (5-15) Blood Urea Nitrogen 6 mg/dL (7-18) L Creatinine 0.7 MG/DL (0.55-1.30) Estimated Glomerular Filtration Rate > 60 mL/min (>60) Glucose Level 124 MG/DL (74-106) H Calcium Level 8.9 MG/DL (8.5-10.1) Total Bilirubin 0.2 MG/DL (0.2-1.0) Aspartate Amino Transferase (AST) 14 U/L (15-37) L Alanine Aminotransferase (ALT) 16 U/L (12-78) Alkaline Phosphatase 73 U/L (46-116) Total Protein 7.7 G/DL (6.4-8.2) Albumin 4.3 G/DL (3.4-5.0) Globulin 3.4 g/dL Albumin/Globulin Ratio 1.3 (1.0-2.7) Lipase 148 U/L (73-393) Rhythm Strip Diag. Results EP Interpretation: yes Rhythm: NSR, no PVC's, no ectopy Last Vital Signs Date Time Temp Pulse Resp B/P (MAP) Pulse Ox O2 Delivery O2 Flow Rate FiO2 05/13/20 08:10 98.0 89 18 112/69 100 05/13/20 07:38 Room Air Status: improved Disposition: HOME, SELF-CARE Condition: Improved Scripts Nitrofurantoin Monohyd/M-Cryst* (MACROBID 100 MG*) 100 Mg Capsule 100 MG ORAL EVERY 12 HOURS, #14 CAP Prov: Ben Norton MD 05/13/20 Mag Hydrox/Aluminum Hyd/Simeth (Mylanta Maximum Strength Liq) 355 Ml Oral.susp 30 ML PO Q6HR PRN for epigastric pain, #240 ML Prov: Ben Norton MD 05/13/20 Hydrocodone/Acetaminophen 5-325* (HYDROCODONE/ACETAMINOPHEN 5-325*) 1 Each Tablet 1 TAB ORAL Q6H PRN for For Pain, #8 TAB 0 Refills Prov: Ben Norton MD 05/13/20 Acetaminophen (Tylenol) 325 Mg Tablet 650 MG ORAL Q6H PRN for Prn Pain/Headache/Temp > 101, #30 TAB 0 Refills Prov: Ben Norton MD 05/13/20 Famotidine* (Pepcid 20mg tablet*) 20 Mg Tablet 20 MG ORAL DAILY for Gerd, #30 TAB 0 Refills Prov: Ben Norton MD 05/13/20 Referrals: [facility],REFERRING (PCP) Ben Norton MD May 13, 2020 08:30
[2020-05-13] MEDS ORDERED: HYDROCODON-ACE1 EA15 ORAL (09:41)
[2020-05-13] MEDS ORDERED: TYLENOL325 MG ORAL (09:41)
[2020-05-13] MEDS ORDERED: MYLANTA MAXIMU355 ML PO (09:41)
[2020-05-13] MEDS ORDERED: FAMOTIDINE20 MG ORAL (09:41)
[2020-05-13] MEDS ORDERED: NITROFURANTOIN100 M2 ORAL (09:43)
== END 2020-05-13 09:56 | disposition home or self-care (01) ==
LOC: EMR 08:00
DX: R10.13 Epigastric pain (principal); N30.00 Acute cystitis without hematuria; K29.01 Acute gastritis with bleeding; E11.9 Type 2 diabetes mellitus without complications
CPT/HCPCS: 36415; 80053; 81003; 81025; 83690; 85025; 85610; 85730; 87086; 96361; 96365; 96375; 96376; J0696; J2270; J2765; J7030; S0028; Z7502; 99284